=== PATIENT | male | born 1985 | race Two or more races ===

== ENCOUNTER 2017-04-17 19:12 | Emergency (ER) | payer OTHER ==
[~2017-04-17] VITALS: Ht 185.4 cm; Wt 90.7 kg
--- NOTE | 2017-04-17 19:53 | NUR ---
Pt c/o left thumb pain, injured during boxing, PMS intact, cap refill < 2 sec. No other complaints, no distress noted.
--- NOTE | 2017-04-17 20:45 | NUR ---
left wrist brace with abductedthumbplaced, pt then d/c'd home, aci/ rx x1 given. also work/school release-note given. pt ambulated w/o diff/took all belongings.
[2017-04-17 20:50] VITALS: BP 122/59
== END 2017-04-17 20:51 | disposition home or self-care (01) ==
LOC: ER 19:14
DX: S63.602A Unspecified sprain of left thumb, initial encounter (principal); X58.XXXA Exposure to other specified factors, initial encounter; Y93.71 Activity, boxing; Y92.89 Other specified places as the place of occurrence of the external cause; Y99.8 Other external cause status; Z98.890 Other specified postprocedural states
CPT/HCPCS: 29125; 73130; 99284; A4663